=== PATIENT | male | born 1945 | race Caucasian/White ===

== ENCOUNTER 2017-05-02 13:30 | Emergency (ER) | payer MEDICARE, BC ==
[2017-05-02 13:58] VITALS: BP 137/95
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
--- NOTE | 2017-05-04 08:42 | CR ---
Hand Comp Min 3V Rt INDICATION: blunt trauma FINDINGS: No acute fracture. Degenerative changes most marked at the radiocarpal joint. Soft tissue swelling over the dorsum of the right hand.
== END 2017-05-02 14:50 | disposition home or self-care (01) ==
LOC: JP.ED 13:30
DX: S60.221A Contusion of right hand, initial encounter (principal); I10 Essential (primary) hypertension; W22.8XXA Striking against or struck by other objects, initial encounter
CPT/HCPCS: 73130-26-RT; 73130-RT; 99284